=== PATIENT | male | born 1975 | race Two or more races ===

== ENCOUNTER → 2020-11-28 | Outpatient (CLI) | payer OTHER ==
--- NOTE | 2020-11-28 13:05 | KCIC ---
EXAM: US RENAL BILAT 11/28/2020 8:54 AM INDICATION: Hematuria. COMPARISON: None TECHNIQUE: Grayscale and color Doppler ultrasound images of the kidneys. FINDINGS: The right kidney measures 11.3 x 4.7 x 5.9 cm. The left kidney measures 10.7 x 5.7 x 6.7 cm. Renal echogenicity and cortical thickness are normal. No hydronephrosis. No obvious renal mass seen by ult rasound. The urinary bladder is unremarkable. Bilateral ureteral jets are visualized. IMPRESSION: Unremarkable renal ultrasound. No hydronephrosis. Consider CT urogram to further evaluate for etiology of hematuria. Electronically signed by: Kirstin Fisher MD (11/28/2020 1:03 PM) [id number]
== END ==
LOC: KCIC US 08:49
PROVIDERS: ATTEND Family Medicine
DX: R31.9 Hematuria, unspecified (principal)
CPT/HCPCS: 76770